=== PATIENT | female | born 1975 | race Caucasian/White ===

== ENCOUNTER 2016-09-08 03:26 | Emergency (ER) | payer BC ==
--- NOTE | 2016-09-08 06:46 | ER ---
ADMIT: 09/08/2016 RM/LOC: ER [facility] MR#: [id number] [facility] [address], [place] [id number] [address] [place] [address] Emergency Room Report SEX: F AGE: 41 : 1975 DATE: 09/08/2016 The patient is a 41-year-old Stateless-speaking female, complaining of escalating paroxysmal nocturnal dyspnea, associated left chest discomfort for the past several months. Denies any exacerbating or relieving maneuvers of the chest discomfort. Does work at [employer]. Right-hand dominant. Does use her left arm quite a bit. Does admit to pain with movement of the left arm. Denies any chest wall injury. Exam remarkable for nontoxic, afebrile, obese female and exquisitely tender left anterior chest wall. EKG shows sinus rhythm without ST-T wave change. Chest x-ray is unremarkable. CTA chest shows no evidence of PE, otherwise unremarkable. Normal CBC, CMP, lactic acid, and CRP. Troponin minimally elevated. D-dimer 0.61. The patient was given 30 mg of Toradol IV push with relief of discomfort. Advised to use ibuprofen 600 mg b.i.d. Follow up with Dr. Owen Painter if paroxysmal nocturnal dyspnea persists. Suggest sleep study. Mario Alberto Li MD/ shana JOB #: [id number] CC: Mario Alberto Li MD, Attending Physician Owen Painter MD, Family Physician Owen Painter MD
== END 2016-09-08 05:44 | disposition home or self-care (01) ==
LOC: ER 03:26
DX: R56.9 Unspecified convulsions (principal); R07.89 Other chest pain; Z87.442 Personal history of urinary calculi; Z98.51 Tubal ligation status; Z79.899 Other long term (current) drug therapy